=== PATIENT | female | born 1955 | race Caucasian/White ===

== ENCOUNTER → 2017-03-12 | Outpatient (CLI) | payer MEDICAID | END | disposition home or self-care (01) | LOC: PCVCIMAG 12:59 | PROVIDERS: ATTEND Internal Medicine | DX: I65.22 Occlusion and stenosis of left carotid artery (principal) | CPT/HCPCS: 93880 ==

== ENCOUNTER → 2018-03-04 | Outpatient (CLI) | payer MEDICAID | END | disposition home or self-care (01) | LOC: PCVCIMAG 08:46 | DX: I65.23 Occlusion and stenosis of bilateral carotid arteries (principal); I10 Essential (primary) hypertension; I25.10 Atherosclerotic heart disease of native coronary artery without angina pectoris; E78.5 Hyperlipidemia, unspecified; E11.9 Type 2 diabetes mellitus without complications; Z95.1 Presence of aortocoronary bypass graft; Z87.891 Personal history of nicotine dependence; Z79.899 Other long term (current) drug therapy; Z79.4 Long term (current) use of insulin; Z79.84 Long term (current) use of oral hypoglycemic drugs; Z88.8 Allergy status to other drugs, medicaments and biological substances | CPT/HCPCS: 93005; 93880; G0463 ==

== ENCOUNTER → 2018-03-18 | Outpatient (CLI) | payer MEDICAID ==
[~2018-03-18] MED LIST: DIAZEPAM 10 MG TABLET.; IOHEXOL 300 MG/ML 100ML VIAL.; IV NORMAL SALINE 500ML BAG 500 ML; LIDOCAINE 1% Multi-Dose 50 ML VIAL.; LIDOCAINE 1%/EPI 1:100,000 20 ML VIAL.; MIDAZOLAM HCL/PF 2 MG/2 ML VIAL.; fentaNYL PF VIAL 100 MCG/2 ML VIAL
== END ==
LOC: PCVCINTER 07:36
DX: I65.22 Occlusion and stenosis of left carotid artery (principal); I10 Essential (primary) hypertension; I70.1 Atherosclerosis of renal artery; I25.10 Atherosclerotic heart disease of native coronary artery without angina pectoris; E78.5 Hyperlipidemia, unspecified; E11.9 Type 2 diabetes mellitus without complications; Z79.4 Long term (current) use of insulin; Z79.899 Other long term (current) drug therapy; Z87.891 Personal history of nicotine dependence
CPT/HCPCS: 36215; 36223; 36225; 36226; 36252; 75630; 75710; 76937; 99152; 99153; C1751; C1760; C1769; C1894; J1644; J2250; J3010; J3490; J7040; Q9967

== ENCOUNTER → 2018-09-10 | Outpatient (CLI) | payer MEDICAID | END | disposition home or self-care (01) | LOC: PCVCCLINIC 10:35 | PROVIDERS: ATTEND Internal Medicine | DX: I25.10 Atherosclerotic heart disease of native coronary artery without angina pectoris (principal); E78.5 Hyperlipidemia, unspecified; I10 Essential (primary) hypertension; I65.23 Occlusion and stenosis of bilateral carotid arteries; E11.9 Type 2 diabetes mellitus without complications; J44.9 Chronic obstructive pulmonary disease, unspecified; M10.9 Gout, unspecified; K21.9 Gastro-esophageal reflux disease without esophagitis; E78.00 Pure hypercholesterolemia, unspecified; Z95.1 Presence of aortocoronary bypass graft; Z79.84 Long term (current) use of oral hypoglycemic drugs; Z87.891 Personal history of nicotine dependence | CPT/HCPCS: 36415; 80061; 93005; G0463 ==

== ENCOUNTER → 2018-12-08 | Outpatient (CLI) | payer MEDICAID | END | disposition home or self-care (01) | LOC: PCVCCLINIC 14:49 | PROVIDERS: ATTEND Internal Medicine | DX: I25.10 Atherosclerotic heart disease of native coronary artery without angina pectoris (principal); R94.31 Abnormal electrocardiogram [ECG] [EKG]; E78.5 Hyperlipidemia, unspecified; I10 Essential (primary) hypertension; E11.9 Type 2 diabetes mellitus without complications; I65.23 Occlusion and stenosis of bilateral carotid arteries; J44.9 Chronic obstructive pulmonary disease, unspecified; K21.9 Gastro-esophageal reflux disease without esophagitis; E78.00 Pure hypercholesterolemia, unspecified; Z87.891 Personal history of nicotine dependence; Z79.899 Other long term (current) drug therapy; Z95.1 Presence of aortocoronary bypass graft; Z88.8 Allergy status to other drugs, medicaments and biological substances; Z79.4 Long term (current) use of insulin | CPT/HCPCS: 93005; G0463 ==

== ENCOUNTER → 2019-03-19 | Outpatient (CLI) | payer MEDICAID ==
--- NOTE | 2019-03-19 09:50 | PCVCIMAG ---
APPROVED REPORT Laterality: Bilateral Patient Location: Out-Patient Indications Stenosis Doppler Spectral Velocity Analysis PSV / EDVPSV / EDV ECA (R) 77 / 10 cm/sECA (L) 260 / 56 cm/s dICA (R) 91 / 24 cm/sdICA (L) 68 / 17 cm/s Makeda (R) 88 / 39 cm/smICA (L) 70 / 18 cm/s pICA (R) 67 / 23 cm/spICA (L) 58 / 18 cm/s Bulb (R) 47 / 9 cm/sBulb (L) 47 / 12 cm/s dCCA (R) 62 / 19 cm/sdCCA (L) 71 / 19 cm/s mCCA (R) 76 / 19 cm/smCCA (L) 91 / 23 cm/s Vert (R) 36 / 14 cm/sVert (L) 52 / 13 cm/s ICA/CCA 1.47ICA/CCA 0.99 Basic Measurements Blood Pressure: Pulses: Right Left RightLeft Brachial(Sitting) 118/18frUy454/60mmHgTemporal Findings The right carotid bulb has mild plaque. The right proximal internal carotid artery shows no significant stenosis. The right common carotid artery shows no significant stenosis. The right external carotid artery shows no significant stenosis. The left carotid bulb has moderate plaque. The left proximal internal carotid artery shows <40% stenosis. The left common carotid artery shows no significant stenosis. The left external carotid artery shows no significant stenosis. Conclusion 1. Right internal carotid artery plaquing without significant stenosis. 2. Left internal carotid artery stenosis (<40%) 3. Antegrade vertebral flow
--- NOTE | 2019-03-19 10:02 | PCVCIMAG ---
APPROVED REPORT Study performed: 03/19/2019 08:31:18 EXAM: Comprehensive 2D, Doppler, and color-flow Echocardiogram Patient Location: Echo lab Room #: 2Status: routine BSA: 1.80 HR: 80 bpmBP: 138/60 mmHg Rhythm: NSR Other Information Study Quality: Adequate Risk Factors: Cardiac Risk Factors: HTN, Hyperlipidemia, DM Indications Diabetes CAD Hypertension/HDD S/P CABG 2D Dimensions IVSd: 8.12 (7-11mm)LVOT Diam: 20.84 (18-24mm) LVDd: 51.33 mm PWd: 7.01 (7-11mm)Ascending Ao: 30.68 (22-36mm) LVDs: 33.65 (25-40mm) Left Atrium: 29.32 (27-40mm) Aortic Root: 21.09 mm LV Single Plane 4CH: 58.13 % LV Single Plane 2CH: 71.35 % Biplane EF: 66.7 % Volumes Left Atrial Volume (Systole) Single Plane 4CH: 29.06 mLSingle Plane 2CH: 34.52 mL Biplane LA Volume: 32.00 mLLA ESV Index: 18.00 mL/m2 Aortic Valve AoV Peak Justin.: 1.21 m/s AO Peak Gr.: 5.82 mmHgLVOT Max P.78 mmHg LVOT Max V: 0.83 m/s WILBER Vmax: 2.35 cm2 Mitral Valve E/A Ratio: 0.9 MV Decel. Time: 185.17 ms MV E Max Justin.: 0.86 m/s MV A Justin.: 0.91 m/s IVRT: 100.35 ms TDI E/Lateral E': 14.33E/Medial E': 12.29 Medial E' Justin.: 0.07 m/s Lateral E' Justin.: 0.06 m/s Pulmonary Valve PV Peak Justin.: 1.09 m/sPV Peak Gr.: 4.71 mmHg Pulmonary Vein P Vein S: 0.38 m/sP Vein A: 0.30 m/s P Vein D: 0.63 m/sP Vein A Dur.: 65.7 msec P Vein S/D Ratio: 0.60 Tricuspid Valve TR Peak Justin.: 1.59 m/s TR Peak Gr.: 10.17 mmHg TV Vmax: 0.60 m/s Left Ventricle The left ventricle is normal size. There is normal LV segmental wall motion. There is normal left ventricular wall thickness. Left ventricular systolic function is normal. The left ventricular ejection fraction is within the normal range. LVEF is 65-70%. Mild diastolic dysfunction is present (impaired relaxation pattern). Right Ventricle The right ventricle is normal size. The right ventricular systolic function is normal. Atria The left atrium size is normal. The right atrium size is normal. Aortic Valve Aortic valve is trileaflet. The aortic valve is minimally sclerotic. No aortic regurgitation is present. There is no aortic valvular stenosis. Mitral Valve The mitral valve is normal in structure. There is no mitral valve regurgitation noted. No evidence of mitral valve stenosis. Tricuspid Valve The tricuspid valve is normal in structure. Trace tricuspid regurgitation. No pulmonary hypertension. Pulmonic Valve The pulmonary valve is normal in structure. There is no pulmonic valvular regurgitation. Great Vessels The aortic root is normal in size. The ascending aorta is normal in size. Aortic arch is normal in caliber. IVC is normal in size and collapses >50% with inspiration. Pericardium There is no pericardial effusion. There is no pleural effusion. <Conclusion> Left ventricular systolic function is normal. There is normal LV segmental wall motion. LVEF is 65-70%. Mild diastolic dysfunction The aortic valve is minimally sclerotic. No aortic regurgitation or stenosis The mitral valve is normal in structure. No mitral valve regurgitation. Pulmonary artery systolic pressure could not be reliably ascertained. There is no pericardial effusion.
== END | disposition home or self-care (01) ==
LOC: PCVCIMAG 08:23
PROVIDERS: ATTEND Internal Medicine
DX: I65.22 Occlusion and stenosis of left carotid artery (principal); I25.10 Atherosclerotic heart disease of native coronary artery without angina pectoris; I10 Essential (primary) hypertension; E11.9 Type 2 diabetes mellitus without complications; Z95.1 Presence of aortocoronary bypass graft
CPT/HCPCS: 93306; 93880